=== PATIENT | female | born 1960 | race Caucasian/White ===

== ENCOUNTER 2016-12-29 07:06 | Outpatient (CLI) | payer MEDICARE ==
[~2016-12-29] VITALS: Ht 167.6 cm; Wt 96.4 kg
--- NOTE | ~2016-12-29 | HEMODYNAMI ---
PATIENT:TANESHA BLANCO MEDICAL RECORD: [id number] : 62 LOCATION:[facility] ADMISSION DATE: 12/29/16 Generatedon:12/29/20168:52 Patient name: TANESHA MORALES Patient #: [id number] SSN: : 1960 Date of study: 12/29/2016 Page: Of Hemodynamic Procedure Report Patient Data Patient Demographics Procedure consent was obtained First Name: TANESHA Gender: Female Last Name: REMBERTO MORALES : 1960 Patient #: [id number] Age: 56 year(s) Race: Unknown Additional ID: [id number] Contact details Address: [place] [address] State: [facility] Zip code: [address] Past Medical History Allergies Allergen Reaction Date Comments Reported Penicillins 12/29/2016 Admission Admission Data Admission Date: 12/29/2016 Admission Time: 7:06 Height (in.): 5.6 BSA: 0.35 (m2) Height (cm.): 14.22 BMI: 4864.99 (kg/m2) Weight (lbs.): 217 Weight (kg.): 98.43 Procedure Procedure Types Cath Procedure Diagnostic Procedure [facility] w/Coronaries Miscellaneous Procedures Moderate Sedation up to 30 minutes Peripheral Cath Diagnostic Procedure Cath Peripheral Four Vessel Arteriogram Procedure Description Procedure Date Procedure Date: 12/29/2016 Procedure Start Time: 8:32 Procedure End Time: 8:51 Procedure Staff Name Function Christophe Mukherjee RN Nurse Nestor Conde MD Performing Physician Nicki Lee RT Monitor Miranda Bolaños RT Scrub Procedure Data Cath Procedure Fluoroscopy Diagnostic fluoroscopy Total fluoroscopy Time: 3.6 time: 3.6 min min Diagnostic fluoroscopy Total fluoroscopy dose: 343 dose: 343 mGy mGy Contrast Material Contrast Material Type Amount (ml) Isovue 300 65 Entry Location Entry Primary Successful Side Size Upsize Upsize Entry Closure Succes sful Closure Location (Fr) 1 (Fr) 2 (Fr) Remarks Device Remarks Femoral Right 5 Fr Exoseal artery Estimated blood loss: 5 ml Diagnostic catheters Device Type Used For End Catheter Placement Cordis 5Fr JL 4.0 Left Coronary Catheter (MP) Angiography Cordis 5Fr 3DRC Catheter Right Coronary (MP) Angiography Cordis 5Fr 3DRC Catheter Cervical carotid (MP) (common) arteriography Cordis 5Fr 3DRC Catheter Cervical carotid (MP) (common) arteriography Cordis 5Fr Pigtail LV Angiography Catheter (MP) Procedure Complications No complications Procedure Medications Medication Administration Route Dosage 0.9% NaCl I.V. 100 ml/hr Oxygen NC 2 l/min Heparin Flush Bag added to field 2 bags (1000units/500ml NS) Lidocaine 2% added to field 20 Versed I.V. 1 mg Fentanyl I.V. 25 mcg Hemodynamics Rest BSA: 0.35 (m2) O2 Consumption: Estimated: 32.35 (ml/min) O2 Consumption indexed: Estimated:92.43 (ml/min/m) Heart Rate: 60 (bpm) Pressure Samples Time Site Value (mmHg) Purpose Heart Use Rate(bpm) 8:46 LV 136/-5,14 EDP 64 Gradients Valve Time Site Site Mean SEP/DFP Peak To Heart Use 1 2 (mmHg) (sec/min) Peak Rate (mmHg) (bpm) Aortic 8:47 LV AO 68 Snapshots Pre Cath Intra NCS Post Cath Vital Signs Time Heart Resp SPO2 etCO2 NIBP (mmHg) Rhythm Pain Sedation Rate (ipm) (%) (mmHg) Status Level (bpm) 8:22:10 60 15 98 32.9 130/76(102) NSR 0 (11) 10(A) , No pain 8:26:53 59 13 97 34.4 122/73(93) NSR 0 (11) 10(A) , No pain 8:31:31 59 14 97 34.4 130/79(108) NSR 0 (11) 10(A) , No pain 8:36:14 58 14 96 35.2 127/76(100) NSR 0 (11) 9(A) , No pain 8:40:54 59 18 97 37.4 125/76(100) NSR 0 (11) 9(A) , No pain 8:45:35 62 14 99 34.4 135/72(116) NSR 0 (11) 9(A) , No pain 8:50:18 64 11 97 41.9 135/80(114) NSR 0 (11) 9(A) , No pain Medications Time Medication Route Dose Verified Delivered Reason Notes Effec tiveness by by 8:20:56 0.9% NaCl I.V. 100 Christophe Christophe Per ml/hr Yaz Mukherjee physician RN RN 8:21:07 Oxygen NC 2 Christophe Christophe Per l/min Yaz Mukherjee physician RN RN 8:21:46 Heparin Flush added 2 Christophe Christophe used for Bag to bags Lorigan Yaz procedure (1000units/500ml field RN RN NS) 8:21:59 Lidocaine 2% added 20ml Christophe Christophe for local to vial Lorigan Lorigan anesthetic field RN RN 8:33:55 Versed I.V. 1 mg Christophe Christophe for Lorigan Lorigan sedation RN RN 8:34:09 Fentanyl I.V. 25 Christophe Christophe for mcg Lorigan Lorigan sedation RN marbleizing machine tender Log Time Note 8:01:04 Patient Height : 5.6 inches 8:01:10 Patient Weight : 217 lbs 8:02:52 H&P Date Dictated: 12/24/2016 Within 30 days and on chart., H&P Addendum completed by physician on day of procedure. (MUST COMPLETE FOR ALL OUTPATIENTS). 8:05:09 Nicki Lee RT(R) sent for patient. Start room use. 8:05:10 Time tracking: Regular hours 8:05:16 Plan of Care:Hemodynamics will remain stable., Cardiac rhythm will remain stable., Comfort level will be maintained., Respiratory function will remain adequate., Patient/ family verbilizes understanding of procedure., Procedure tolerated without complication., Recovers from procedure without complications.. 8:10:54 Patient received from Pre/Post Procedure Room to CCL 1 Alert and oriented. Tansferred to table in Supine position. 8:10:55 Warm blankets applied, and ladonna hugger turned on for patient comfort. 8:10:55 Correct patient and procedure confirmed by team. 8:10:57 Signed procedure consent form obtained from patient. 8:10:58 ECG and BP/O2 sat monitors applied to patient. 8:20:56 0.9% NaCl 100 ml/hr I.V. was administered by Christophe Mukherjee RN; Per physician; 8:21:07 Oxygen 2 l/min NC was administered by Christophe Mukherjee RN; Per physician; 8:21:14 Vital chart was started 8:21:46 Heparin Flush Bag (1000units/500ml NS) 2 bags added to field was administered by Christophe Mukherjee RN; used for procedure; 8:21:59 Lidocaine 2% 20ml vial added to field was administered by Christophe Mukherjee RN; for local anesthetic; 8:22:12 Baseline sample Acquired. 8:22:15 Rhythm: sinus rhythm 8:22:16 Full Disclosure recording started 8:22:17 Pre-procedure instructions explained to patient. 8:22:18 Pre-op teaching completed and patient verbalized understanding. 8:22:19 Family unavailable. 8:22:22 Patient NPO since Midnight. 8:22:27 Patient allergic to Penicillins 8:22:29 Is the patient allergic to Iodine/contrast media? No. 8:22:32 Is patient on blood thinner?Yes 8:22:34 ACC The patient was administered the following blood thiners within the last 24 hours: ACCAspirin, ACCPlavix 8:22:36 Patient diabetic? No. 8:22:43 Previous problem with sedation/anesthesia? No ? 8:22:45 Snore? Yes 8:22:46 Sleep apnea? No 8:22:47 Deviated septum? No 8:22:47 Opens mouth fully? Yes 8:22:48 Sticks out tongue? Yes 8:22:50 Airway obstruction? No ? 8:22:54 Dentures? No ? 8:22:57 Pre procedure: right dorsailis pedis pulse 2+ Normal; easily identifiable; not easily obliterated 8:22:59 Patient pain scale 0/10 ?. 8:23:04 IV patent on arrival in left hand with 0.9% NaCl at [facility]. 8:23:12 Lab results completed and on chart. 8:23:15 Right groin area was prepped with chlora-prep and draped in sterile fashion 8:23:15 Alarms reviewed by R. N. 8:23:16 Sharps counted by scrub and verified by R.N. 8:24:20 Final Timeout: patient, procedure, and site verified with staff and physician. All members of the team are in agreement. 8:24:22 Right groin site verified by team. 8:24:24 Physical assessment completed. ASA score P 2 - A patient with mild systemic disease as per Nestor Conde MD. 8:24:27 Sedation plan: IV Moderate Sedation Medication:Versed, Fentanyl 8:28:12 Zero performed for pressure channel P1 8:28:35 Procedure type changed to Cath procedure, Diagnostic procedure, LHC, LHC w/Coronaries, Miscellaneous Procedures, Moderate Sedation up to 30 minutes, Peripheral Cath Diagnostic Procedure, Cath Peripheral, Four Vessel Arteriogram 8:32:34 Procedure started. 8:32:42 Local anesthetic to right femoral artery with Lidocaine 2% by Christophe Mukherjee RN.INITIAL ACCESS ONLY 8:33:26 A 5 Fr sheath was inserted into the Right Femoral artery 8:33:55 Versed 1 mg I.V. was administered by Christophe Mukherjee RN; for sedation; 8:34:09 Fentanyl 25 mcg I.V. was administered by Christophe Mukherjee RN; for sedation; 8:35:21 Use device set Femoral Dx 8:35:22 Acist Syringe opened to sterile field. 8:35:22 Bag Decanter opened to sterile field. 8:35:22 Medline Cath Pack opened to sterile field. 8:35:23 Terumo 5Fr Basalt Sheath opened to sterile field. 8:35:23 [facility] 260cm J .035 wire opened to sterile field. 8:35:26 Acist Hand Control opened to sterile field. 8:35:26 Acist Manifold opened to sterile field. 8:35:26 Diagnostic Infinity 5Fr Multipack catheter opened to sterile field. 8:35:27 Tegaderm 4 x 4 opened to sterile field. 8:35:31 A Cordis 5Fr JL 4.0 Catheter (MP) was advanced over the wire and used for Left Coronary Angiography. 8:39:22 Catheter removed. 8:39:30 A Cordis 5Fr 3DRC Catheter (MP) was advanced over the wire and used for Right Coronary Angiography. 8:40:23 A Cordis 5Fr 3DRC Catheter (MP) was advanced over the wire and used for Cervical carotid (common) arteriography.Left 8:42:19 A Cordis 5Fr 3DRC Catheter (MP) was advanced over the wire and used for Cervical carotid (common) arteriography.Right 8:44:58 Catheter removed. 8:45:07 A Cordis 5Fr Pigtail Catheter (MP) was advanced over the wire and used for LV Angiography. 8:46:42 LV gram done using SIM 8:46:47 Injector settings: Ml/sec: 12, Volume: 8, 8:46:52 LV hemodynamics recorded. 8:47:07 Catheter removed. 8:47:17 Sheath removed intact; hemostasis achieved with Exoseal to the Right Femoral artery. 8:47:24 Cordis 5Fr Exoseal opened to sterile field. 8:47:27 Procedure ended.(Physican Out) 8:47:39 Fluoroscopy time 03.60 minutes. 8:47:43 Fluoroscopy dose: 343 mGy 8:47:43 Flurop Dose total: 343 8:48:22 Contrast amount:Isovue 300 65ml. 8:48:24 Sharps counted by scrub and verified by R.N. 8:48:26 Insertion/operative site no bleeding no hematoma. 8:48:29 Post-op/insertion site Right Femoral artery dressed using a 4 x 4 and Tegaderm. 8:48:56 Post right femoral artery:stable, clean and dry 8:48:58 Post Procedure Pulses reassessed and unchanged 8:49:01 Post-procedure physical assessment completed. ASA score P 2 - A patient with mild systemic disease as per Nestor Conde MD. 8:49:03 Post procedure rhythm: unchanged. 8:49:06 Estimated blood loss: 5 ml 8:49:07 Post procedure instruction explained to patient.Patient verbalizes understanding. 8:49:07 Patient needs reinforcement of post procedure teaching. 8:49:11 Procedure Complication : No complications 8:49:13 See physician's report for complete and final results. 8:50:11 Procedure and supply charges have been captured, reviewed, submitted and are correct. 8:51:29 Vital chart was stopped 8:51:32 Report given to Pre/Post Procedure Room. 8:51:35 Patient transfered to Pre/Post Procedure Room with Stretcher. 8:51:37 Procedure ended. 8:51:37 Full Disclosure recording stopped 8:51:47 End room use (Document Last) Device Usage Item Name Manufacture Quantity Catalog Hospital Part Current Minimal Lo t# / Number Charge Number Stock Stock Serial# Code [facility] 1 [id number] [id number] 193050 [id number] 20 Syringe [employer] Bag Microtek 1 2002S 390897 20789 703229 5 Dec[employer] Medline Cardinal 1 [id number] 949021 06062 768117 5 Cath Pack Health Terumo 5Fr Terumo 1 [id number] 209857 410290 [id number] [address] [facility] 1 025773 045374 638386 671324 30 260cm J .035 wire Acist Hand Acist 1 91744 994974 677920 901086 5 Control [employer] Inc Acist Acist 1 36128 829254 656355 888445 5 Manifold [employer] Diagnostic Cardinal 1 [id number] 058798 40723 856528 30 Get Real Health 5Fr Multipack catheter Tegaderm 4 3M 1 1626W 348463 532720 539278 5 x 4 Cordis 5Fr Cardinal 1 623740 5 JL 4.0 Health Catheter (MP) Cordis 5Fr Cardinal 1 079802 5 3DRC Health Catheter (MP) Cordis 5Fr Cardinal 1 [id number] 5 Pigtail Health Catheter (MP) Cordis 5Fr Cardinal 1 EX500 948845 585260 446948 10 [facility] [place] Stage Time Signature Unsigned Intra-Procedure 12/29/2016 Nicki 8:52:03 AM Counts RT(R) Signatures Monitor : Nicki Signature : Counts RT Date : Time : [id number] [place] [address]
[~2016-12-29 07:06] MED LIST: BAYER CHEWABLE81 MG PO; NEURONTIN 300300 MG PO; NITROSTAT0.4 MG SL; TENORMIN50 MG PO
[2016-12-29] MEDS ORDERED: ATROVENT HFA12.9 GM INH (07:13)
[2016-12-29] MEDS ORDERED: PROVENTIL HFA6.7 GM INH (07:14)
[2016-12-29 07:18] LABS: BASOPHILS 0.1 % (0-2); EOSINOPHILS 2.6 % (0-7); HEMATOCRIT 32.6 % (36.0-48.0); HEMOGLOBIN 11.8 g/dL (12-16); IMMATURE GRANULOCYTES 0.4 % (0-5); LYMPHOCYTES 15.2 % (15-50); MCH 31.5 pg (26.0-34.0); MCHC 36.2 g/dL (31.0-37.0); MCV 86.9 fL (80.0-100.0); MEAN PLATELET VOLUME 9.4 fL (7.4-10.4); MONOCYTES 10.2 % (2-11); NEUTROPHILS 71.5 % (40-80); PLATELET COUNT 383 10x3/uL (130-400); RBC 3.75 10x6/uL (4.00-5.40); RDW 12.6 % (11.5-14.5); WBC 10.9 10x3/uL (4.8-10.8)
[2016-12-29 07:19] VITALS: BP 107/59; Ht 167.6 cm; Wt 96.4 kg
[2016-12-29 07:32] LABS: ANION GAP 13.2 mmol/L (8-16); CARBON DIOXIDE 26.2 mmol/L (21.0-32.0); CREATININE - SERUM 0.9 mg/dL (0.6-1.3); POTASSIUM - SERUM 3.4 mmol/L (3.5-5.1)
[2016-12-29 07:34] LABS: HCG SERUM NEGATIVE (NEGATIVE)
--- NOTE | 2016-12-29 09:20 | NUR ---
RIGHT GROIN 5F EXOSEAL CDI, NO BLEEDING OR HEMATOMA NOTED. 2L NC, NO RESP DISTRESS. VSS. NO C/O NAUSEA OR PAIN. SIDE RAILS UP X2, CALL LIGHT WITHIN REACH.
--- NOTE | 2016-12-29 09:50 | NUR ---
RESTING QUIETLY WITH EYES CLOSED. RIGHT GROIN 5F EXOSEAL CDI, NO BLEEDING OR HEMATOMA NOTED. 2L NC, NO RESP DISTRES. VSS. NO C/O PAIN OR NAUSEA. WILL CONTINUE TO MONITOR.
--- NOTE | 2016-12-29 10:27 | NUR ---
HOB ELEVATED 30 DEGREES. RIGHT GROIN 5F EXOSEAL CDI, NO BLEEDING NOTED. DRINK AND SANDWICH TRAY GIVEN, NO C/O NAUSEA. VSS.
--- NOTE | 2016-12-29 10:41 | NUR ---
LEFT PIV D/C'D WITH CATHETER INTACT, BAND AID TO SITE. AMBULATED TO RESTROOM TO VOID.
--- NOTE | 2016-12-29 11:15 | NUR ---
TAKEN OUT VIA WHEELCHAIR BY CATH JAIL OFFICER. LEFT FACILITY WITH AND ALL PERSONAL BELONGINGS.
== END 2016-12-29 11:15 | disposition home or self-care (01) ==
LOC: D.CATH 07:06
PROVIDERS: Internal Medicine Cardiovascular Disease
DX: R07.89 Other chest pain (principal); R94.39 Abnormal result of other cardiovascular function study; R09.89 Other specified symptoms and signs involving the circulatory and respiratory systems; I25.10 Atherosclerotic heart disease of native coronary artery without angina pectoris; I65.23 Occlusion and stenosis of bilateral carotid arteries; I10 Essential (primary) hypertension; G45.9 Transient cerebral ischemic attack, unspecified; Z01.812 Encounter for preprocedural laboratory examination